=== PATIENT | male | born 2005 | race Asian ===

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

== ENCOUNTER 2024-09-07 05:40 | Emergency (ER) | payer MEDICAID ==
[~2024-09-07] VITALS: Ht 180.3 cm; Wt 50.1 kg
[2024-09-07 06:28] LABS: BASOPHILS % (AUTO) 0.5 % (0-1); EOSINOPHILS # (AUTO) 0.1 X10'3 (0-0.9); EOSINOPHILS % (AUTO) 0.6 % (0-6); HEMATOCRIT 45.1 % (42.0-52.0); HEMOGLOBIN 14.9 g/dl (14.0-17.9); LYMPHOCYTES # (AUTO) 1.5 X10'3 (1.1-4.8); LYMPHOCYTES % (AUTO) 14.5 % (21-51); MEAN CORPUSCULAR HEMOGLOBIN 27.7 PG (27.0-31.0); MEAN CORPUSCULAR VOLUME 83.9 FL (78-98); MEAN PLATELET VOLUME 8.1 FL (7.4-10.4); MONOCYTES # (AUTO) 0.7 X10'3 (0-0.9); MONOCYTES % (AUTO) 6.7 % (2-12); NEUTROPHILS # (AUTO) 7.8 X10'3 (1.8-7.7); NEUTROPHILS % (AUTO) 77.7 % (42-75); PLATELET COUNT 329 X10'3 (140-440); RED BLOOD COUNT 5.37 X10'6 (4.70-6.10); RED CELL DISTRIBUTION WIDTH 14.1 % (11.5-14.5)
[2024-09-07] MEDS: ondansetron/PF 4mg/2ml inj IV ONE (06:30)
[2024-09-07] MEDS: normal saline 1000ml 1,000 ML IV ONE (06:35)
[2024-09-07 06:40] LABS: ALANINE AMINOTRANSFERASE 45 U/L (12-78); ALBUMIN 4.8 G/DL (3.4-5.0); ALBUMIN/GLOBULIN RATIO 1.1 (1.1-1.5); ALKALINE PHOSPHATASE 73 IU/L (20-180); ANION GAP 11 (8-16); ASPARTATE AMINO TRANSFERASE 20 U/L (10-37); BILIRUBIN,TOTAL 0.3 MG/DL (0.1-1.0); BLOOD UREA NITROGEN 30 MG/DL (7-18); BUN/CREATININE RATIO 23.6 (10.0-20.0); CALCIUM 9.7 MG/DL (8.5-10.1); CHLORIDE 107 MMOL/L (99-107); CREATININE 1.27 MG/DL (0.60-1.10); GLUCOSE 91 MG/DL (70-104); SODIUM 143 MMOL/L (135-145); eCRCL 66 ML/MIN; eGFR 72 ML/MIN
[2024-09-07 06:54] LABS: LIPASE > 375 U/L (16-77)
[2024-09-07 07:03] LABS: BILIRUBIN,URINE NEGATIVE (Neg); CLARITY,URINE CLEAR (Clear); COLOR,URINE STRAW (Yellow); GLUCOSE, URINE NEGATIVE (Neg); KETONES,URINE NEGATIVE (Neg); LEUKOCYTE ESTERASE ,URINE NEGATIVE (Neg); NITRITES, URINE NEGATIVE (Neg); OCCULT BLOOD,URINE NEGATIVE (Neg); PROTEIN,URINE NEGATIVE (Neg); UROBILINOGEN,URINE 0.2 E.U/dL (0.2-1.0)
[2024-09-07 07:05] LABS: UA COLLECTION TYPE URINAL
[2024-09-07] MEDS ORDERED: iohexol 300mg/ml 100ml inj. ONE (07:39)
[2024-09-07 09:23] VITALS: BP 125/81; PULSE 75; RESP 16; O2SAT 100
[2024-09-07] MEDS: HYDROcodone/acetaminophen 5mg/325mg tablet PO ONE (09:23)
[2024-09-07] MEDS: ondansetron 4mg rapidly disintigrating tab PO ONE (09:23)
[2024-09-07 09:28] VITALS: TEMP 97.8
== END 2024-09-07 09:29 | disposition home or self-care (01) ==
LOC: ER 05:41
DX: F17.200 Nicotine dependence, unspecified, uncomplicated (principal); K85.90 Acute pancreatitis without necrosis or infection, unspecified
CPT/HCPCS: 36415; 74177; 80053; 81003; 83690; 85025; 96361; 96374; 99285; J2405; J7030; Q9967